=== PATIENT | female | born 1950 | race Caucasian/White ===

== ENCOUNTER 2018-04-12 10:51 | Observation (INO) | payer MEDICARE, BC ==
[2018-04-12 11:25] LABS: #Basophils 0.1 thou/uL (0.0-0.2); #Eosinphils 0.6 thou/uL (0.0-0.7); #Lymphocytes 1.2 thou/uL (1.20-3.40); #Monocytes 0.7 thou/uL (0.11-0.59); #Neutrophils 3.5 thou/uL (1.40-6.50); %Eosinophils 9.6 % (0.0-10.0); %Lymphocytes 20.1 % (21.0-51.0); %Monocytes 11.2 % (0.0-10.0); %Neutrophils 58.1 % (42.0-75.0); Hemoglobin 11.2 g/dL (12.0-16.0); Mean Corpuscular HGB CONC 32.4 g/dL (32.0-36.0); Mean Corpuscular Hemoglobin 31.3 pg (27.0-31.0); Mean Corpuscular Volume 96.5 fL (78.0-98.0); Mean Platelet Volume 8.5 fL (7.4-10.4); Platelet Count 167 thou/uL (130-400); RBC Distribution Width 13.2 % (11.5-14.5); Red Blood Cell (RBC) Count 3.58 mill/uL (4.20-5.40)
[2018-04-12 11:49] LABS: ALT (SGPT) 10 U/L (8-55); AST (SGOT) 15 U/L (5-34); Albumin 3.7 g/dL (3.4-4.8); Alkaline Phosphatase 71 U/L (40-150); Anion Gap 11 mmol/L (10-20); BUN (Urea Nitrogen) 21 mg/dL (9.8-20.1); Bilirubin, Total 0.4 mg/dL (0.2-1.2); CK (CPK) 181 U/L (29-168); Calc. Creatinine Clearance 0 mL/min (70-130); Calcium 8.9 mg/dL (7.8-10.44); Carbon Dioxide 28 mmol/L (23-31); Chloride 105 mmol/L (98-107); Estimated GFR-MDRD 39; Globulin 2.8 g/dL (2.4-3.5); Glucose 105 mg/dL (80-115); Potassium 4.4 mmol/L (3.5-5.1); Protein, Total 6.5 g/dL (6.0-8.3); Sodium 140 mmol/L (136-145)
[2018-04-12] MEDS ORDERED: Aspirin Chewable 81 MG TAB ONE (12:29)
--- NOTE | 2018-04-12 12:47 | CT ---
BRAIN CT WITHOUT IV CONTRAST: History: Stroke alert. Generalized weakness with syncopal episode. Slurred speech. Last seen normal at 10:10 a .m. FINDINGS: Minimal motion artifact through the skull base region. There are some scattered calcification changes within the vertebral basilar system as well as the intracranial internal carotid arteries. No focal mass or midline shift. No intra or extraaxial hemorrhage. No CT evidence for acute infarct. No areas of significant abnormal encephalomalacia. IMPRESSION: Minimal motion artifact through the lower scan/levels. No evidence for mass or hemorrhage or evidence for an acute infarct or encephalomalacia. Findings discussed with Dr. Preston in the Emergency Department at approximately 11:05 a.m. Paulina KENYON POS: [facility]
--- NOTE | 2018-04-12 12:48 | RAD ---
PORTABLE SEMIUPRIGHT FRONTAL CHEST RADIOGRAPH: 04/12/2018 HISTORY: Altered mental status. COMPARISON: None. FINDINGS: There is mild elevation of the right hemidiaphragm. There is mild perihilar and bibasilar interstiti al prominence, with no pneumothorax, pleural fluid, focal consolidation, or alveolar edema. IMPRESSION: 1. No focal consolidation or alveolar edema. 2. Mild interstitial prominence in the perihilar regions may signify vascular structures or mild [place]. POS: [facility]
[2018-04-12 13:43] LABS: Bilirubin Negative (Negative); Blood, Urine Negative (Negative); Clarity CLOUDY (Clear); Glucose, Urine (Dipstick) Negative (Negative); Leukocyte Moderate (Negative); Nitrite Positive (Negative); Protein, Urine (Dipstick) Negative (Neg-Trace); Specific Gravity, Urine 1.017 (1.002-1.036); Urobilinogen 0.2 mg/dL (0.2-1.0); pH, Urine 5.5 (5.0-9.0)
[2018-04-12 13:46] LABS: Bacteria/HPF 2+ HPF (None Seen); Hyaline Casts/LPF 0-3 HYALINE CAST LPF (0-3 Hyaline); Pathc Cast-AUWi Flag 0.43 (0-2.49); RBC/HPF 0-3 HPF (0-3); Squamous Epithelial 0-3 HPF (0-3); WBC/HPF 21-50 HPF (0-3)
[2018-04-12] MEDS ORDERED: cefTRIAXone\\ROCEPHIN 1 GM VIAL ONE (14:38)
[2018-04-12] MEDS ORDERED: Senokot S 8.6-50 MG TAB PO PRN (15:07)
[2018-04-12] MEDS ORDERED: Acetaminophen 325 MG TAB PO PRN (15:07)
[2018-04-12] MEDS ORDERED: Guaifenesin DM 100-10/5 ML UDCUP PO PRN (15:07)
[2018-04-12] MEDS ORDERED: Sodium Chloride 0.9% 1,000 ML IV SCH (15:15)
[2018-04-12 15:32] LABS: Troponin I Less than 0.010 ng/mL (< 0.028)
--- NOTE | 2018-04-12 15:59 | HP ---
REASON FOR ADMISSION: TIA, moderate dehydration, acute kidney injury. HISTORY OF PRESENTING ILLNESS: The patient is actually from [place] and has been visiting this area for EMT conference. She developed more slurred speech and was not herself. The patient states that she had not been eating or drinking much from yesterday evening. Has some dry cough and also has history of asthma with wheezing a bit at present. No complaints of chest pain or palpitation. Has no specific weakness in any of the extremities. The patient has chronic speech issues per at bedside, but they do not know the exact reason for the same. Has no complaints of urinary frequency or urgency. No fever at home. No chest pain, palpitations, or PND. She has had a recent sleep study done and is about to get a CPAP prescribed by her bed teacher in [place]. She has not had a chance to go follow up with him for a prescription. No prior history of stroke. She is a right-handed person. PAST MEDICAL AND SURGICAL HISTORY: Hypothyroidism, history of lupus, peripheral neuropathy, history of multiple stones in her kidneys with lithotripsy done, low back surgery, right toe surgery, left ankle fusion, tonsillectomy, adenoidectomy. CURRENT MEDICATIONS: 1. Plaquenil 200 mg twice daily. 2. Synthroid daily. 3. Gabapentin 300 mg daily. 4. Folic acid 1 mg daily. 5. Breo Ellipta inhaler. ALLERGIES: ALLERGIC TO SULFA. PERSONAL HISTORY: Does not abuse alcohol or drugs. No history of smoking. She lives with her . The patient uses a cane to ambulate due to risk of falling forward per patient. FAMILY HISTORY: Both parents at the age of 89 years from old age and natural causes. CODE STATUS: Full. Power of trust and estates attorney is her . REVIEW OF SYSTEMS: CONSTITUTIONAL: Negative for weight loss or gain, ability to conduct usual activities. SKIN: Negative for rash, itching. EYES: Negative for double vision, pain. ENT/MOUTH: Negative for nose bleeding, neck stiffness, pain, tenderness. CARDIOVASCULAR: Negative for palpitations, dyspnea on exertion, orthopnea. RESPIRATORY: Negative for shortness of breath, wheezing, cough, hemoptysis, fever or night sweats. GASTROINTESTINAL: Negative for poor appetite, abdominal pain, heartburn, nausea , vomiting, constipation, or diarrhea. GENITOURINARY: Negative for urgency, frequency, dysuria, nocturia. MUSCULOSKELETAL: Negative for pain, swelling. NEUROLOGIC/PSYCHIATRIC: Negative for anxiety, depression. ALLERGY/IMMUNOLOGIC: Negative for skin rash, bleeding tendency. PHYSICAL EXAMINATION: GENERAL: The patient is a 68-year-old female, who is currently not in any acute distress. VITAL SIGNS: Blood pressure 124/64, pulse 68 per minute, respiratory rate 16 per minute, temperature 97.8 degrees Fahrenheit, saturating 98% on room air. NECK: Supple. No elevated JVD. HEENT: Eyes; extraocular muscles intact. Pupils reacting to light. Oral cavity, mucous membranes are dry. No exudates or congestion. CARDIOVASCULAR: S1 and S2 heard. Regular rhythm. RESPIRATORY SYSTEM: Air entry 1+ bilateral. Scattered wheezes plus bilateral. ABDOMEN: Soft. Bowel sounds heard. No tenderness, rigidity, or guarding. EXTREMITIES: There is nonpitting edema in both lower extremities. No calf tenderness. VASCULAR: Peripheral pulses 1+ bilateral. No ischemic ulcerations or gangrene. CENTRAL NERVOUS SYSTEM: Cranial nerves are grossly intact. The patient is lethargic, but oriented well. Motor system; strength is 5/5 in all four extremities. Reflexes are 2+ bilateral. Babinski is downgoing both toes. Cerebellar signs are grossly intact. Gait was not tested. Sensation is grossly intact to touch. PSYCHIATRIC: No obvious hallucinations or delusions. LABORATORY DATA: EKG done shows sinus bradycardia at 59 beats per minute. There is Q-wave seen in V1, V2. White count of 6, H and H 11 and 34, platelet count 167 with 58% neutrophils, MCV is 96. Electrolytes stable. BUN 21, creatinine 1.3, serum bicarb 28, serum glucose 105. Liver enzymes within normal limits. CK levels 181, troponin I less than 0.01. Albumin is 3.7. UA shows positive nitrite, moderate leukocyte esterase, 21 to 50 wbc's, and 2+ bacteria. CT brain done shows minimal motion artifact through the lower scan/levels. No evidence of mass or hemorrhage or evidence of acute infarct or encephalomalacia seen. Chest x-ray done shows no focal consolidation or alveolar edema. There is mild prominence of the perihilar regions. CLINICAL IMPRESSION AND PLAN: The patient will be under observation on stroke unit for possible transient ischemic attack, moderate dehydration, urinary tract infection, and initial altered mental state which is resolved at present. She has gotten a L of normal saline in the ER along with aspirin and ceftriaxone 1 g for urinary tract infection. We will continue her on normal saline at 60 mL per hour for a total of one more L. She will be on Levaquin after urine cultures are obtained. Albuterol nebulizer q.6 hourly for mild asthma exacerbation. She will be on 81 mg of aspirin along with 40 mg of atorvastatin. A lipid profile will be obtained in the morning. The patient has history of lupus and will continue her Plaquenil as before for the same. She will also continue Synthroid. MRI and echo for completion of stroke workup will be done. PT, OT, and speech evaluations will be obtained as well. We will obtain ELENA levels in view of her history of connective tissue disorder, and we will also obtain C3 and C4 levels to see for any current activity with history of lupus. Job ID: [id number] TRACI
[2018-04-12 16:12] LABS: Complement-C4 28.1 mg/dL (15-57)
--- NOTE | 2018-04-12 18:52 | MRI ---
MRI BRAIN NONCONTRAST: History: Altered mental status. Syncope. FINDINGS: Involving the right posterior frontal cortex at a peripheral sulcus is a small gyriform focus of incr eased FLAIR and T2 signal. No restricted diffusion. No other areas of recent infarct evident. Ventric les appear normal in size, shape, and position. Visualized paranasal sinuses remain well aerated. IMPRESSION: Very small focus of right posterior frontal subacute infarct. No large distribution vascular insult i s apparent. POS: [facility]
[2018-04-12 19:40] LABS: Troponin I Less than 0.010 ng/mL (< 0.028)
[2018-04-12] MEDS ORDERED: Atorvastatin Calcium 40 MG TAB PO SCH (21:00)
[2018-04-12] MEDS: Hydroxychloroquine Sulfate 200 MG TAB PO SCH (21:20)
[2018-04-12] MEDS: Albuterol Sulfate 2.5 mg/3 ml Neb NEB SCH ×2 (22:38→23:54)
[2018-04-12 22:59] VITALS: BMI 45.2
[2018-04-13 05:03] LABS: #Eosinphils 0.5 thou/uL (0.0-0.7); #Lymphocytes 0.9 thou/uL (1.20-3.40); #Monocytes 0.6 thou/uL (0.11-0.59); #Neutrophils 2.7 thou/uL (1.40-6.50); %Basophils 0.8 % (0.0-1.0); %Eosinophils 10.8 % (0.0-10.0); %Lymphocytes 19.4 % (21.0-51.0); %Monocytes 12.2 % (0.0-10.0); %Neutrophils 56.8 % (42.0-75.0); Hemoglobin 9.8 g/dL (12.0-16.0); Mean Corpuscular HGB CONC 32.4 g/dL (32.0-36.0); Mean Corpuscular Hemoglobin 31.5 pg (27.0-31.0); Mean Corpuscular Volume 97.1 fL (78.0-98.0); Platelet Count 165 thou/uL (130-400); Red Blood Cell (RBC) Count 3.11 mill/uL (4.20-5.40); White Blood Cell (WBC) Count 4.7 thou/uL (4.8-10.8)
[2018-04-13 05:26] LABS: Anion Gap 13 mmol/L (10-20); BUN (Urea Nitrogen) 17 mg/dL (9.8-20.1); Calc. Creatinine Clearance 100 mL/min (70-130); Calcium 8.1 mg/dL (7.8-10.44); Carbon Dioxide 23 mmol/L (23-31); Cardiac Risk 2.4 (Less than 4.5); Chloride 108 mmol/L (98-107); Cholesterol 125 mg/dl (< 200 Desired); Estimated GFR-MDRD 50; Glucose 143 mg/dL (80-115); HDL Cholesterol 53 mg/dL (>60 Neg Risk); LDL Cholesterol, Calculated 56 mg/dL; Potassium 4.5 mmol/L (3.5-5.1); Sodium 139 mmol/L (136-145); Triglycerides 81 mg/dL (Less than 150)
[2018-04-13] MEDS ORDERED: Levothyroxine Sodium 88 MCG TAB PO SCH (06:00)
[2018-04-13] MEDS: Albuterol Sulfate 2.5 mg/3 ml Neb NEB SCH ×2 (07:08→14:29)
[2018-04-13] MEDS ORDERED: Enoxaparin Sodium 40 MG/0.4 ML SYRINGE SC SCH (09:00)
[2018-04-13] MEDS ORDERED: Gabapentin 100 MG CAP PO SCH (09:00)
[2018-04-13] MEDS ORDERED: Aspirin 81 mg Enteric Coated Tablet PO SCH (09:00)
[2018-04-13] MEDS: Hydroxychloroquine Sulfate 200 MG TAB PO SCH (09:43)
--- NOTE | 2018-04-13 11:35 | CON ---
DATE OF CONSULTATION: 04/13/2018 NEUROLOGY CONSULTATION CONSULTING PHYSICIAN: Hospitalist Service. IMPRESSION: 1. Transient amnesia, which apparently is a recurrent event in association with the urinary tract infection. 2. Incidental finding of a punctate area of infarction in the right frontal lobe. 3. Excessive daytime sleepiness, possibly secondary to sleep apnea. PLAN: 1. Levaquin is ordered for the UTI. 2. Continue aspirin and statin. 3. The patient can be discharged home this afternoon for follow up with her primary care physician in [place]. HISTORY OF PRESENT ILLNESS: Ms. Jo is a 68-year-old white female, who is in town for a conference. She had been having problems with excessive sleepiness. She fall asleep quite easily if she was sitting still. She apparently was at the conference and was noted by her to be acting oddly. She has poor memory of several hours of what took place yesterday. She regained some awareness when she was in the emergency room. Prior to this, she had been having some intermittent headaches. She reports a past history of migraines. She has had an episode of amnesia about a year ago. She was diagnosed with a urinary tract infection at the time. She subsequently had an MRI done, which confirmed a very small focus of right posterior frontal subacute infarct. Her vital signs have otherwise been stable with no fever or other signs of toxicity. She says she feels like she is back to her baseline today. She denies any focal neurologic deficits. PAST MEDICAL HISTORY: Migraine headache, obesity, and hyperlipidemia. ALLERGIES: SULFA. SOCIAL HISTORY: No tobacco or alcohol use. FAMILY HISTORY: Noncontributory. MEDICATIONS: Medication list was reviewed. REVIEW OF SYSTEMS: Ten system review of systems is, otherwise, negative. PHYSICAL EXAMINATION: GENERAL: She is a moderately overweight elderly lady, in no acute distress. VITAL SIGNS: Blood pressure 116/58, pulse 65, respirations 20, and temperature 97.6. HEENT: Pupils are equal. Conjunctivae are clear. Oropharynx clear. NECK: Supple. EXTREMITIES: No cyanosis, clubbing, or edema. NEUROLOGIC: She is alert and appropriate. Her speech is fluent and clear. Her exam is nonfocal. There is no tremor or other abnormal movement noted. LABORATORY STUDIES: Include CBC with a white count of 4.7, hemoglobin 9.8. Chemistry panel with a BUN of 21, creatinine 1.35. Cholesterol ratio of 2.4. Urine was positive for nitrites, moderate leukocytes with 21 to 50 white cells and 2+ bacteria. SUMMARY: This is a 68-year-old woman, who presents with a transient episode of confusion and amnesia. The tiny area of ischemic focus would not correlate clinically with her symptoms. I suspect that in some way the urinary tract infection contributes to increased confusion. She has been having excessive sleepiness in association with this event, which I suspect is going to be due to sleep apnea based on her body habitus. I would continue aspirin and a statin. Her workup is nearly complete and I suspect she will be able to be discharge today. Job ID: [id number]
[2018-04-13 12:26] VITALS: BP 138/91; TEMP 98.4
--- NOTE | 2018-04-13 15:45 | PDOC.PN ---
- Subjective Encounter Start Date: 04/13/18 Encounter Start Time: 08:35 Subjective: awake, not in distress -: is moving all extremities -: has ambulated in hallway - Objective Resuscitation Status - Order Detail: 04/12/18 15:02 Resuscitation Status Routine Resuscitation Status: FULL: Full Resuscitation MAR Reviewed: Yes Vital Signs & Weight: Vital Signs (12 hours) Temp Pulse Pulse Pulse Pulse Pulse Resp 04/13/18 12:00 98.4 F 80 20 04/13/18 10:14 68 71 82 71 04/13/18 08:00 97.6 F 65 20 04/13/18 07:59 04/13/18 07:08 70 16 04/13/18 04:00 97.8 F 70 20 BP BP BP BP BP BP BP 04/13/18 12:00 138/91 H 04/13/18 10:14 100/50 L 166/91 H 192/91 H 131/66 04/13/18 08:00 116/58 L 04/13/18 07:59 166/91 H 192/91 H 04/13/18 07:08 04/13/18 04:00 86/51 L BP Pulse Ox Pulse Ox Pulse Ox 04/13/18 12:00 94 L 04/13/18 10:14 92 L 92 L 04/13/18 08:00 96 04/13/18 07:59 100/50 L 04/13/18 07:08 04/13/18 04:00 90 L Weight Weight 289 lb I&O: 04/12/18 04/13/18 04/14/18 06:59 06:59 06:59 Intake Total 1046 Balance 1046 Result Diagrams: 04/13/18 04:05 04/13/18 04:05 Phys Exam - Physical Examination HEENT: PERRLA, moist MMs Neck: no JVD, supple Respiratory: no wheezing, no rales Cardiovascular: RRR, no significant murmur Gastrointestinal: soft, non-tender, positive bowel sounds Musculoskeletal: no edema, pulses present Neurological: non-focal, moves all 4 limbs Psychiatric: normal affect, A&O x 3 Dx/Plan (1) Acute CVA (cerebrovascular accident) Code(s): I63.9 - CEREBRAL INFARCTION, UNSPECIFIED Status: Acute Comment: right frontal (2) Dehydration, moderate Code(s): E86.0 - DEHYDRATION Status: Acute (3) UTI (urinary tract infection) Status: Acute Qualifiers: Urinary tract infection type: acute cystitis Hematuria presence: without hematuria Qualified Code(s): N30.00 - Acute cystitis without hematuria (4) Obesity Code(s): E66.9 - OBESITY, UNSPECIFIED Status: Chronic Qualifiers: Obesity classification: adult class 3 (BMI >= 40) Body mass index: BMI 45.0 -49.9 (5) H/O systemic lupus erythematosus (SLE) Code(s): M32.9 - SYSTEMIC LUPUS ERYTHEMATOSUS, UNSPECIFIED Status: Chronic - Plan hemo/neurostable -: dehydration has resolved with iv hydration -: tolerating oral diet -: to continue asp, small dose lipitor along with plaquenil and levaquin -: dc pt home, she needs cpap via her personal injury specialist in [place] * .
[2018-04-13 18:17] LABS: ANA Symphony (Qualitative) Negative (Negative); ANA Symphony (Quantitative) 0.6 Ratio (< 0.7 Negative); dsDNA IgG Antibody 0.8 IU/mL (<10 Negative)
--- NOTE | 2018-04-14 16:37 | DIS ---
DATE OF ADMISSION: 04/12/2018 DATE OF DISCHARGE: 04/13/2018 DISCHARGE DISPOSITION: Home. PRIMARY DISCHARGE DIAGNOSES: Acute cerebrovascular accident in the right frontal area, moderate dehydration, urinary tract infection, obesity, history of systemic lupus erythematosus, and underlying sleep apnea. PROCEDURES DONE DURING HOSPITALIZATION: The patient had initial CT brain without contrast done, which did not reveal any mass or hemorrhage. No acute infarcts or encephalomalacia are seen on the plain CT scan. MRI brain without contrast showed very small focus of right posterior frontal subacute infarct. No large distribution vascular insult was apparent. Echo with 2D Doppler showed EF of 60% to 65%. There was diastolic dysfunction. Heavily calcified aortic valve with decreased cusp opening was seen. Moderate tricuspid regurgitation. Aortic root dimension was 3.32 cm. AV cusp separation was 1.01 cm. Peak gradient across the aortic valve was 26.66 mmHg and mean gradient was 201.54 cm2. Blood cultures x2, no growth. Urine culture no growth. H and H 10 and 30, platelet count 165, MCV is 97, white count of 4.7, total cholesterol 125, triglycerides 81, LDL 56, HDL 53, BUN 17, creatinine 1.0. Troponin x3 negative. BNP 136. ELENA screen was negative. C3 of 156, C4 levels 28.1, double-stranded DNA, IgG antibody was 0.8. DISCHARGE MEDICATIONS: 1. Aspirin 81 mg p.o. daily. 2. Atorvastatin 5 mg p.o. daily. 3. Plaquenil 200 mg p.o. twice daily. 4. Levaquin 500 mg p.o. daily for a total of 5 days for urinary tract infection. ALLERGIES: ALLERGIC TO SULFA. DISCHARGE PLAN: The patient to follow up with her unit clerk in [place] for a prescription for her recently completed sleep study and CPAP. She needs to follow up with her primary care physician in one week. BRIEF COURSE DURING HOSPITALIZATION: The patient initially came in to the ER on the with symptoms of difficulty speaking/slurred speech and not being herself. She and her had come to this area from [place] for EMT conference. She was essentially admitted for TIA with moderate dehydration and acute kidney injury on arrival. The patient also was found to have had urinary tract infection based on UA findings. Her blood and urine cultures have not grown any organism. Her initial CT brain did not reveal any acute infarct or bleed. A subsequent MRI done showed possible subacute infarct in the right posterior frontal area. Echo with 2D Doppler showed good ejection fraction. There was incidental finding of heavily calcified aortic valve with decreased cusp opening. Please see description of the aortic valve findings on the Doppler in the procedure section above. She has remained hemodynamically stable. She has ambulated in the hallway of more than 200 feet prior to discharge. The patient does not have any motor symptoms from her CVA. Her speech is clearing up as well. The patient has chronic underlying speech issue per . She also needs to follow up with a neurologist via primary care physician in [facility], where she is from. She is hemodynamically and neurologically stable. She was evaluated by Dr. Cj Donahue for Neurology here. Please see a [id number] documentation for the day of discharge on [facility]. Also she needs to get her CPAP prescriptions from her unit clerk in [place] at the earliest. Job ID: [id number] MTDD
== END 2018-04-13 14:44 | disposition home or self-care (01) ==
LOC: ERS 10:51 → ERHOLD 14:26 → OBSVTOIN 14:26 → INTOOBSV 14:26 → 2SE 19:14
PROVIDERS: ADMIT Internal Medicine; ATTEND Internal Medicine
DX: I63.9 Cerebral infarction, unspecified (principal); R47.81 Slurred speech; E86.0 Dehydration; N30.00 Acute cystitis without hematuria; M32.9 Systemic lupus erythematosus, unspecified; G47.30 Sleep apnea, unspecified; I35.0 Nonrheumatic aortic (valve) stenosis; I07.1 Rheumatic tricuspid insufficiency; N17.9 Acute kidney failure, unspecified; J45.909 Unspecified asthma, uncomplicated; E03.9 Hypothyroidism, unspecified; G62.9 Polyneuropathy, unspecified; G43.909 Migraine, unspecified, not intractable, without status migrainosus; E78.5 Hyperlipidemia, unspecified; E66.9 Obesity, unspecified; Z68.42 Body mass index [BMI] 45.0-49.9, adult; Z79.899 Other long term (current) drug therapy; Z88.2 Allergy status to sulfonamides
CPT/HCPCS: 70450; 70551; 71045; 80048; 80053; 80061; 82550; 82962; 83880; 84484 ×2; 85025 ×2; 86038; 86160 ×2; 86225; 87040; 87086; 93005; 93306; 94640 ×2; 94760; 96361 ×3; 96372; 96374; 97116; 99285; G0378 ×2; 36415; 36416; 81003; 81015; J0696; J1650; J7611